=== PATIENT | male | born 1960 | race Caucasian/White ===

== ENCOUNTER 2016-11-22 11:11 | Emergency (ER) | payer MEDICARE, OTHER | END 2016-11-22 13:27 | disposition home or self-care (01) | LOC: FER 11:11 | DX: J10.1 Influenza due to other identified influenza virus with other respiratory manifestations (principal); S40.011A Contusion of right shoulder, initial encounter; E11.9 Type 2 diabetes mellitus without complications; I10 Essential (primary) hypertension; W19.XXXA Unspecified fall, initial encounter | CPT/HCPCS: 71020; 73030; 87804; 87899; 99284 ==